=== PATIENT | female | born 1960 | race Caucasian/White ===

== ENCOUNTER 2024-09-05 11:39 | Outpatient (CLI) | payer BC, SELFPAY ==
--- NOTE | ~2024-09-05 | DEXA_ITS ---
Bone Density Report Name: ELTON DEXTER Age: 63 Sex: Female Ethnicity: White Date of : 1960 Indication: postmenopausal; screening for osteoporosis; height loss; Referring Provider: PHYSICIAN, TEAM FOREMAN Study: Bone densitometry was performed. Exam Date: September 05, 2024 Accession number: [id number] Bone Density: Region BMD T-score Z-score Classification AP Spine(L1-L4) 0.870 -1.6 0.1 Osteopenia Femoral Neck (Left) 0.705 -1.3 0.2 Osteopenia Total Hip (Left) 0.763 -1.5 -0.3 Osteopenia Femoral Neck (Right) 0.645 -1.8 -0.4 Osteopenia Total Hip (Right) 0.744 -1.6 -0.5 Osteopenia Total Hip Mean 0.753 -1.6 -0.4 Osteopenia World Health Organization criteria for BMD impression classify patients as: Normal (T-score at or above -1.0), Osteopenia (T-score between -1.0 and -2.5), or Osteoporosis (T-score at or below -2.5). 10-year Fracture Risk(1): Major Osteoporotic Fracture 9.8% Hip Fracture 1.2% Reported Risk Factors: [place] (), Neck BMD=0.645, BMI=26.6 (1) FRAX(R) Version 3.08. Fracture probability calculated for an untreated patient. Fracture probability may be lower if the patient has received treatment. Clinical Information Provided by Patient: Has used the following medications: Vitamin D, Calcium Patient maximum height was 69 Menopause Age: 45 No regular weight bearing exercise Drinks caffeinated beverages Onset of menses at age 11 Number of children 2 Impression: The patient has low bone mass, based on the Right Femoral Neck T-score. The patient has an estimated ten-year risk of hip fracture of 1.2% and an estimated ten-year risk of major fracture of 9.8%, based on the WHO FRAX algorithm. Discussion: BONE DENSITY IS LOW AT ONE OR MORE SKELETAL SITES. This patient's lowest T-score is low at one or more skeletal sites. It meets the World Health Organization's (WHO) criteria for ?low bone mass? (T-score between -1.0 and -2.5). The patient's 10-year risk of fracture as calculated by FRAX is less than the threshold where pharmacological therapy is recommended by the National Osteoporosis Foundation (NOF). However, all treatment decisions require clinical judgment and consideration of individual patient factors, including patient preferences, comorbidities, previous drug use, risk factors not captured in the FRAX model (e.g., frailty, falls, vitamin D deficiency, increased bone turnover, interval significant decline in bone density) and possible under or overestimation of fracture risk by FRAX. The patient should follow a healthful lifestyle (good nutrition with adequate calcium and vitamin D, and appropriate weight-bearing exercise). Follow-Up: Consider repeating this study in 2 to 3 years to reassess this patient's status, or sooner if there is some new clinical indication. Reported by: AMERICO on 09/05/2024 12:27:00 PM. Reviewed, dictated and finalized at location AStephanie RUIZ
== END 2024-09-05 11:40 | disposition home or self-care (01) ==
DX: M85.89 Other specified disorders of bone density and structure, multiple sites (principal); Z91.89 Other specified personal risk factors, not elsewhere classified
CPT/HCPCS: 77080